=== PATIENT | male | born 1965 | race Hispanic/Latino ===

== ENCOUNTER 2025-04-27 06:20 | Day surgery (SDC) | payer BC, SELFPAY ==
[2025-04-16 13:59] VITALS: BMI 26.0
[2025-04-27] VITALS (13 sets, daily range): BP systolic 97–148; BP diastolic 70–101; BMI 26.0
[2025-04-27] MEDS: TYLENOL 1000 MG PO (07:18)
[2025-04-27] MEDS: NORMOSOL-R/PLASMALYTE-A 1000 IV (07:19)
--- NOTE | 2025-04-27 07:20 | W.SUR.PREOP ---
Pre-Operative Surgical Note
-
I have examined this patient prior to the performance of the scheduled procedure.
The patient's condition is unchanged from the time of the current History and
Physical and the patient is able to undergo the scheduled procedure.
--- NOTE | 2025-04-27 07:20 | HP.FOC2 ---
Focused History & Physical
Chief Complaint
HPI:
Chief Complaint: Right inguinal hernia
HPI / Indication for Planned Procedure: This is a 60-year-old male who presents with a symptomatic right inguinal hernia. Will plan for robotic right inguinal hernia repair with mesh.
Relevant Past Medical History: Negative
Relevant Social History: Negative
Relevant Family History: Negative
Relevant Past Surgical History: Negative
Review of Systems
Review of Pertinent Systems: All Systems Negative
Medication
See Medication form for detailed medications: Yes
Medication List (including Herbals & OTC):
acetaminophen 325 mg capsule 650 mg PO PRN PRN pain 04/20/25
Medications Reviewed: Yes
Allergies and Reactions
Patient has Allergies: No
Noted Allergies and Reactions:
Allergy/AdvReac Type Severity Reaction Status Date / Time
No Known Allergies Allergy Verified 04/27/25 07:16
Pertinent Physical Exam
All Other Systems: Negative
Head/Neck: Normal
Diagnosis / Assessment
This is a 60-year-old male who presents with a symptomatic right inguinal hernia. Will plan for robotic right inguinal hernia repair with mesh.
Plan / Procedure
This is a 60-year-old male who presents with a symptomatic right inguinal hernia. Will plan for robotic right inguinal hernia repair with mesh.
Anesthesia/Sedation to be done by Anesthesia Provider: Yes
--- NOTE | 2025-04-27 09:37 | W.IMMPOSTOP ---
Surgical Immed Post Op Note
-
Primary Surgeon: Ramo Bonilla MD
Assisting Surgeon: None
Pre-op Diagnosis: Right inguinal hernia
Post-op Diagnosis: Bilateral inguinal hernias
Procedure Performed:
1. Robotic bilateral inguinal hernia repair with mesh
2. Excision of a left spermatic cord lesion (cord lipoma)
Anesthesia Type: General
Specimen / Cultures: None
Estimated Blood Loss: 7 cc
Complications: None
Operative Findings: Right 'direct' hernia passing lateral to the epigastrics but separate from the canal. No true indirect hernia. No femoral component either. On the left a shallow but large direct hernia as well as a large indirect hernia were
identified. There was also a large left cord lipoma that was reduced and excised. After achieving the critical view of the MPO bilaterally the spaces were reinforced with an extra-large left and a large right Bard 3D max uncoated polypropylene
midweight meshes respectively.
--- NOTE | 2025-04-27 09:40 | OR.RPT ---
Operative Report
Operative Report
Patient Name: Aleksander De La Fuente
: 1965
Date of Operation: 04/27/2025
Preoperative Diagnosis: Reducible Inguinal hernia, right
Postoperative Diagnosis: Bilateral inguinal hernias
Procedure(s):
1. Robotic Inguinal Hernia Repair with mesh, bilateral (KENYATTA approach)
2. Excision of lesion of a spermatic cord lipoma, right ([id number])
Surgeon(s):
Dr. Bonilla
Invasive Cardiovascular Technologist(s):
FREDRICK Toribio
Anesthesia: General
Estimated Blood Loss: 7 cc
Urine Output: None
Drains/Lines/Implants: Extra-large, large 3D Max Bard mid weight uncoated polypropylene meshes
Specimens: None
Indication for surgery: The patient has a history of groin pain and noted on exam to have a right inguinal Hernia(s). Following review of therapeutic options they have elected to undergo a minimally invasive repair.
Operative Findings: Right 'direct' hernia passing lateral to the epigastrics but separate from the canal. No true indirect hernia. No femoral component either. On the left a shallow but large direct hernia as well as a large indirect hernia were
identified. There was also a large left cord lipoma that was reduced and excised. After achieving the critical view of the MPO bilaterally the spaces were reinforced with an extra-large left and a large right Bard 3D max uncoated polypropylene
midweight meshes respectively.
Details of the operation:
The patient was brought to the Operating Room and placed in the supine position with the arms tucked. IV antibiotics were infused and Venodyne stockings placed. Following uneventful induction of general endotracheal anesthesia, an orogastric tube
was placed. The abdomen was prepped and draped in the usual sterile fashion. The abdomen was entered using a Veress technique which required 1 pass(es), pneumoperitoneum to 15 mmHg was obtained without difficulty. An 8mm trochar was passed through
the abdominal wall roughly 20 cm cephalad to the inguinal canal. We then confirmed that no inadvertent injury was made while passing the trocar or Veress needle. We then placed two additional 8 mm ports in the left upper and right upper quadrants.
We then docked the robot with a Prograsper in the left hand port and monopolar scissors in the right. Bilateral inguinal hernias were readily identified, with the right being significantly greater than the left. At this point we elected to do a
bilateral inguinal hernia repair. We then began by creating a flap at the level of the ASIS on the right side laterally working our way medially to the medial umbilical fold. Staying onto the peritoneum we were able to circumferentially dissect
around the hernia sac and and peel it off of the underlying spermatic cord and testicular vessels, taking care to preserve them. Medially we identified the midline pubis as well as Trenton's ligament and ensured to dissect 2 cm below the pubic rim
over the bladder. After exposure of the entire myopectineal orifice we identified and reduced: A direct hernia passing lateral to the epigastrics but separate from the inguinal canal, there was no true direct inguinal hernia, no femoral hernia and
no cord lipoma on the right side. We then repeated the exact same dissection on the left side where we identified a large indirect hernia, a shallow wide direct hernia as well as as a large cord lipoma that was reduced and resected. There was no
femoral component.
After achieving the critical view of the MPO bilaterally we then fixated a large 3D max mesh with a 2-0 Vicryl stitch at coopers medially and superior laterally, on the right side and then extra-large 3D max mesh on the left. The flap was then
closed with a running 2-0 barbed monocryl suture ensuring that the tail was cut flush with the medial fat pad so that no barbs were exposed. During the closure of the flap an Angiocath was inserted and 20 cc of quarter percent Marcaine was
instilled. The area in the flap cavity was then evacuated of air confirming that the mesh was flush and there were no folds on the left, there was a small fold in the mesh on the right so an intentional rent was made in the peritoneum to straighten
the mesh which we did and this rent was then closed with a 2-0 Vicryl. All needles and instruments were then removed and the robot was undocked. The abdomen was then desufflated, and pneumoperitoneum evacuated. All skin sites were then closed with
4-0 Monocryl followed by Dermabond. Counts were correct and overall, the patient tolerated the procedure well and was taken to the Recovery Room postoperatively in stable condition.
I was the attending physician and performed the procedure with assistance of the PA above. The assistance of FREDRICK Toribio was required due to the complexity of the procedure. During the procedure Sharon assisted with port placement, instrument
and needle exchanges, and closure of the wound. I was present for all portions of the case, excluding skin closure.
Ramo Bonilla MD
[2025-04-27] MEDS: ZOFRAN 4 MG IV (09:50)
[2025-04-27] MEDS: DILAUDID 0.25 MG IV ×3 (10:02→10:18)
[2025-04-27] MEDS: MOTRIN 600 MG PO (11:15)
== END 2025-04-27 13:40 | disposition home or self-care (01) ==
LOC: SDS 06:20
PROVIDERS: ATTENDING PHYSICIAN Surgery; FAMILY PHYSICIAN Family Medicine
DX: K40.20 Bilateral inguinal hernia, without obstruction or gangrene, not specified as recurrent (principal)
CPT/HCPCS: 49650; 36415; 93005; C1781

== ENCOUNTER → 2025-05-28 11:15 | Outpatient (REF) | payer BC, SELFPAY | LOC: RAD 11:15 | PROVIDERS: ATTENDING PHYSICIAN Surgery; FAMILY PHYSICIAN Family Medicine | DX: R10.31 Right lower quadrant pain (principal); R10.32 Left lower quadrant pain | CPT/HCPCS: 72192 ==